=== PATIENT | female | born 1975 | race Caucasian/White ===

== ENCOUNTER 2025-07-29 16:17 | Emergency (ER) | payer MEDICAID, OTHER | END 2025-07-29 17:16 | disposition home or self-care (01) | LOC: MADERS 16:17 | DX: B34.9 Viral infection, unspecified (principal); H57.89 Other specified disorders of eye and adnexa; K12.0 Recurrent oral aphthae; E11.9 Type 2 diabetes mellitus without complications; E66.9 Obesity, unspecified; F17.210 Nicotine dependence, cigarettes, uncomplicated; Z79.84 Long term (current) use of oral hypoglycemic drugs | CPT/HCPCS: 99283 ==